=== PATIENT | female | born 1985 | race Caucasian/White ===

== ENCOUNTER 2017-07-23 17:15 | Emergency (ER) | payer OTHER ==
[~2017-07-23] VITALS: Ht 162.6 cm; Wt 99.8 kg
[~2017-07-23 17:15] MED LIST: CETI10TA22 PO; ESOM20CA PO; PREN1TAB58 PO
[2017-07-23] MEDS ORDERED: IV NORMAL SALINE 1,000ML 1,000 ML IV SCH (17:44)
[2017-07-23 18:11] LABS: BASO % 0 % (0-3); EOS # 0.1 x10^3/uL (0.0-0.7); EOS % 1 % (0-3); HEMATOCRIT 39.5 % (36.0-47.0); HEMOGLOBIN 13.5 g/dL (12.0-15.5); LYMPH # 2.2 x10^3/uL (1.0-4.8); LYMPH % 27 % (24-48); MEAN CORPUSCULAR HEMOGLOBIN 31 pg (25-35); MEAN CORPUSCULAR HGB CONC 34 g/dL (31-37); MEAN CORPUSCULAR VOLUME 92 fL (79-100); MONO # 0.3 x10^3/uL (0.0-1.1); MONO % 4 % (0-9); NEUT # 5.6 x10^3uL (1.8-7.7); NEUT % 67 % (31-73); PLATELET COUNT 172 x10^3/uL (140-400); RED BLOOD COUNT 4.31 x10^6/uL (3.50-5.40); RED CELL DISTRIBUTION WIDTH 13.4 % (11.5-14.5); WHITE BLOOD COUNT 8.3 x10^3/uL (4.0-11.0)
[2017-07-23 18:32] LABS: ALBUMIN 3.4 g/dL (3.4-5.0); CALCIUM 8.7 mg/dL (8.5-10.1); CREATININE 0.6 mg/dL (0.6-1.0); GFR 114.4; POTASSIUM 3.5 mmol/L (3.5-5.1); TOTAL BILIRUBIN 0.1 mg/dL (0.2-1.0); TOTAL PROTEIN 6.8 g/dL (6.4-8.2)
--- NOTE | 2017-07-23 18:45 | PHYS DOC ---
Past History Past Medical History: GERD, Hypertension, Ovarian Cyst, Other Past Surgical History: Cholecystectomy, Other Alcohol Use: None Drug Use: None Adult General Chief Complaint Chief Complaint: med withdrawal or side effect HPI HPI Patient is a 32-year-old female who presented ambulatory to the ED with multiple complaints. Patient states that she was advised to come in by her case finisher. Patient had been on Effexor worse since March, it wasn't working, so this past Tuesday her doctor changed her to Wellbutrin and trazodone, stopped the Effexor. She states she began having "withdrawal symptoms" the next day, including headache, sweaty, nausea, vomiting. This has persisted and gotten worse. She now feels dizzy, "confused" and has body aches. She called yesterday to report the symptoms and someone in the office told her to "get off of the Wellbutrin and trazodone" so she has not taken those and then either. Patient has not had withdrawal symptoms like this before. She had been on Effexor in the past, was off it for a while, and then in March started at a low dose and had been increasing her dose for a while and then had been on she believes 150 mg a day for several weeks prior to stopping it on Tuesday. Patient states "I was so dizzy, I probably shouldn't have driven myself, I had to talk to my friend on the phone the whole way here because I was so dizzy". Review of Systems Review of Systems Constitutional: She has felt sweaty Eyes: Denies change in visual acuity, redness, or eye pain [] HENT: Denies nasal congestion or sore throat [] Respiratory: Denies cough or shortness of breath [] Cardiovascular: Denies chest pain GI: She has had some nausea and vomiting : Denies dysuria or hematuria [] Musculoskeletal: She has had diffuse aches and pains Integument: Denies rash or skin lesions [] Neurologic: Positive headache Current Medications Current Medications Current Medications Medications (Trade) Dose Ordered Sig/Jason Start Time Stop Time Status Last Admin Dose Admin Sodium Chloride 1,000 ml @ 1,000 mls/hr Q1H 07/23/17 17:44 07/23/17 18:43 07/23/17 18:06 1,000 MLS/HR Allergies Allergies Allergies Coded Allergies Type Severity Reaction Last Updated Verified Penicillins Allergy Intermediate RASH 09/02/14 Yes Physical Exam Physical Exam Constitutional: Well developed, well nourished, no acute distress, non-toxic appearance. Alert, warm and dry, mentating normally. HENT: Normocephalic, atraumatic, bilateral external ears normal, nose normal. [ ] Eyes: conjunctiva normal, no discharge. [] Neck: Normal range of motion, no stridor. [] Cardiovascular:Heart rate regular rhythm, no murmur [] Lungs & Thorax: Bilateral breath sounds clear to auscultation [] Abdomen: Bowel sounds normal, soft, no tenderness, no masses, no pulsatile masses. [] Skin: Warm, dry, no erythema, no rash. [] Extremities: No tenderness, no cyanosis, no clubbing, ROM intact, no edema. [] Neurologic: Alert and oriented X 3, normal motor function, no focal deficits noted. [] Current Patient Data Vital Signs Vital Signs Date Time Temp Pulse Resp B/P (MAP) Pulse Ox O2 Delivery O2 Flow Rate FiO2 07/23/17 17:20 99.1 107 18 100 Room Air Lab Results Laboratory Tests Test 07/23/17 17:51 White Blood Count 8.3 x10^3/uL (4.0-11.0) Red Blood Count 4.31 x10^6/uL (3.50-5.40) Hemoglobin 13.5 g/dL (12.0-15.5) Hematocrit 39.5 % (36.0-47.0) Mean Corpuscular Volume 92 fL (79-100) Mean Corpuscular Hemoglobin 31 pg (25-35) Mean Corpuscular Hemoglobin Concent 34 g/dL (31-37) Red Cell Distribution Width 13.4 % (11.5-14.5) Platelet Count 172 x10^3/uL (140-400) Neutrophils (%) (Auto) 67 % (31-73) Lymphocytes (%) (Auto) 27 % (24-48) Monocytes (%) (Auto) 4 % (0-9) Eosinophils (%) (Auto) 1 % (0-3) Basophils (%) (Auto) 0 % (0-3) Neutrophils # (Auto) 5.6 x10^3uL (1.8-7.7) Lymphocytes # (Auto) 2.2 x10^3/uL (1.0-4.8) Monocytes # (Auto) 0.3 x10^3/uL (0.0-1.1) Eosinophils # (Auto) 0.1 x10^3/uL (0.0-0.7) Basophils # (Auto) 0.0 x10^3/uL (0.0-0.2) Sodium Level 143 mmol/L (136-145) Potassium Level 3.5 mmol/L (3.5-5.1) Chloride Level 106 mmol/L (98-107) Carbon Dioxide Level 28 mmol/L (21-32) Anion Gap 9 (6-14) Blood Urea Nitrogen 17 mg/dL (7-20) Creatinine 0.6 mg/dL (0.6-1.0) Estimated GFR (Cockcroft-Gault) 114.4 BUN/Creatinine Ratio 28 (6-20) H Glucose Level 121 mg/dL (70-99) H Calcium Level 8.7 mg/dL (8.5-10.1) Total Bilirubin 0.1 mg/dL (0.2-1.0) L Aspartate Amino Transferase (AST) 15 U/L (15-37) Alanine Aminotransferase (ALT) 31 U/L (14-59) Alkaline Phosphatase 126 U/L (46-116) H Total Protein 6.8 g/dL (6.4-8.2) Albumin 3.4 g/dL (3.4-5.0) Albumin/Globulin Ratio 1.0 (1.0-1.7) EKG EKG [] Radiology/Procedures Radiology/Procedures [] Course & Med Decision Making Course & Med Decision Making Pertinent Labs and Imaging studies reviewed. (See chart for details) 32-year-old female presents ambulatory with multiple complaints, concerned that she might be having withdrawal symptoms from Effexor, "something to do with my serotonin". She was advised to come in by her case finisher. Someone in the office also advised her to stop taking Wellbutrin and trazodone. I advised the patient that I am not a specialist who prescribes Effexor, Wellbutrin, or trazodone, and I am not able to make a recommendation on whether she should be taking any of those at this time. I ask her to follow her prescriber's recommendations on that. I advised her that we can check some labs and give her a liter of fluids which might make her feel better since a lot of her complaints of dizziness. She is agreeable to that plan. I am checking the patient out to Dr. Valadez at change of shift. Labs are pending and the patient is getting a liter of fluids. [] Dragon Disclaimer Dragon Disclaimer This electronic medical record was generated, in whole or in part, using a voice recognition dictation system. Departure Departure: Impression: Primary Impression: Medication side effects Additional Impression: Depression Disposition: HOME, SELF-CARE Condition: GOOD Referrals: MORGAN WILLIAMSON (PCP) Additional Instructions: Your workup in the emergency department today was unremarkable. It is possible that the symptoms she been experiencing are result of your recent medication adjustments. No further workup or treatment is indicated at this time. Follow- up with your doctor Tuesday morning to discuss and make decisions regarding your collaborative medical management going forward. Return immediately for new severe worsening symptoms Problem Qualifiers LISANDRA FOURNIER MD Jul 23, 2017 18:45 LONA VALADEZ MD Jul 23, 2017 21:45
[2017-07-23 21:40] VITALS: BP 130/82
== END 2017-07-23 21:54 | disposition home or self-care (01) ==
LOC: ER 17:15
DX: R51 Headache (principal); R11.2 Nausea with vomiting, unspecified; T50.995A Adverse effect of other drugs, medicaments and biological substances, initial encounter; F32.9 Major depressive disorder, single episode, unspecified; K21.9 Gastro-esophageal reflux disease without esophagitis; I10 Essential (primary) hypertension; Z88.0 Allergy status to penicillin; Y92.89 Other specified places as the place of occurrence of the external cause
CPT/HCPCS: 36415; 80053; 85025; 96360; 99284-25; J7030

== ENCOUNTER 2018-10-13 17:11 | Emergency (ER) | payer OTHER ==
[~2018-10-13] VITALS: Ht 162.6 cm; Wt 106.6 kg
--- NOTE | 2018-10-13 17:57 | PHYS DOC ---
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 She states that her foot at stuck on the carpeting and she went down face first. She states the majority of her pain is in her left knee. She states the pain is worsened with weightbearing and much worse if she tries to palpate it. She also indicates that she has moderate pain in her right ribs stating that she has some pain with deep breathing. She states the pain in her elbow is due to an abrasion that she sustained when she fell. She indicates that she has full range of motion about the elbow. Injury occurred a couple of hours ago.[] (WALE HARRINGTON Jr., DO) Review of Systems Review of Systems Constitutional: Denies fever or chills [] Respiratory: Denies cough or shortness of breath [] Cardiovascular: No additional information not addressed in HPI [] Musculoskeletal: Positive left knee and right elbow pain [] Integument: Positive abrasion right elbow[] (WALE HARRINGTON Jr., DO) Current Medications Current Medications Current Medications Medications (Trade) Dose Ordered Sig/Jason Start Time Stop Time Status Last Admin Dose Admin Ketorolac Tromethamine (Toradol Im) 60 mg 1X ONCE 10/13/18 18:00 10/13/18 18:01 (WALE HARRINGTON Jr., DO) Allergies Allergies Allergies Coded Allergies Type Severity Reaction Last Updated Verified Penicillins Allergy Intermediate RASH 09/02/14 Yes (WALE HARRINGTON Jr., DO) Physical Exam Physical Exam Constitutional: Well developed, well nourished, no acute distress, non-toxic appearance. [] Cardiovascular:Heart rate regular rhythm, no murmur [] Lungs & Thorax: Bilateral breath sounds clear to auscultation [] Skin: Right elbow demonstrates abrasion around the dorsum, measuring approximately 4 cm in diameter. [] Extremities: Examination of left knee demonstrates mild soft tissue swelling and some ecchymosis around the medial aspect of the knee extending up to the patella. Patient unable to tolerate range of motion and ligamentous testing due to reported pain. [] Neurologic: Alert and oriented X 3, no focal deficits noted. [] (WALE HARRINGTON Jr., DO) Current Patient Data Vital Signs Vital Signs Date Time Temp Pulse Resp B/P (MAP) Pulse Ox O2 Delivery O2 Flow Rate FiO2 10/13/18 17:21 98.4 98 18 99 Room Air (WALE HARRINGTON Jr., DO) EKG EKG [] (WALE HARRINGTON Jr., DO) Radiology/Procedures Radiology/Procedures [] (WALE HARRINGTON Jr., DO) Radiology/Procedures My interpretation of Chest and Knee films show no obvious displaced fractures or pneumothorax. (GUILLERMO LOYD MD) Course & Med Decision Making Course & Med Decision Making Pertinent Labs and Imaging studies reviewed. (See chart for details) Patient moved to room upon arrival was evaluated by your medical staff after which x-rays were ordered of the left knee and right ribs. Patient also given a shot of IM Toradol. At this time, x-ray images are pending and patient is being signed out to oncoming ER physician, Dr. Loyd, at 6:00 PM. (WALE HARRINGTON Jr., DO) Course & Med Decision Making Impression: 1. Abrasions 2. Contusions 3. Sprain/ Strain Knee Ice packs as needed. Elevation. Rest. Polysporin to abrasions. Tylenol, Ibuprofen, Vicoprofen for pain. Follow up with primary. Return if any concerns. Yeison wrap to Knee. Distal neurovascular intact post application of Yeison. (GUILLERMO LOYD MD) Dragon Disclaimer Dragon Disclaimer This electronic medical record was generated, in whole or in part, using a voice recognition dictation system. (WALE HARRINGTON Jr., DO) Departure Departure: Referrals: MORGAN WILLIAMSON (PCP) Scripts Bacitracin/Polymyxin B Sulfate (POLYSPORIN OINTMENT) 28.3 Gm Oint...g. 28.3 GM TP QID for abrasions, #120 MISC Prov: GUILLERMO LOYD MD 10/13/18 Acetaminophen (ACETAMINOPHEN) 500 Mg Tablet 1000 MG PO QIDPRN PRN for PAIN, #120 TAB Prov: GUILLERMO LOYD MD 10/13/18 Ibuprofen (IBUPROFEN) 400 Mg Tablet 600 MG PO QIDPRN PRN for PAIN, #120 TAB Prov: GUILLERMO LOYD MD 10/13/18 Hydrocodone/Ibuprofen (HYDROCODONE-IBUPROFEN 7.5-200 ) 1 Each Tablet 1 TAB PO PRN Q6HRS PRN for PAIN, #30 % 0 Refills Prov: GUILLERMO LOYD MD 10/13/18 Discharge Summary Visit Information Final Diagnosis Problems Medical Problems: (1) Abrasion forearm Status: Acute (2) Multiple contusions Status: Acute (3) Sprain and strain Status: Acute (GUILLERMO LOYD MD) Brief Hospital Course Allergies Allergies Coded Allergies Type Severity Reaction Last Updated Verified Penicillins Allergy Intermediate RASH 09/02/14 Yes Vital Signs Vital Signs Date Time Temp Pulse Resp B/P (MAP) Pulse Ox O2 Delivery O2 Flow Rate FiO2 10/13/18 18:49 89 18 165/87 (113) 99 Room Air 10/13/18 17:21 98.4 Brief Hospital Course Ms. Petersen is a 33 old female who presented with contusions, abrasion, sprain /strain that occur during team building exercise with work. (GUILLERMO LOYD MD) Discharge Information Condition at Discharge: Improved, Stable Disposition/Orders: D/C to Home Dischare Medications Current Medications Ketorolac Tromethamine (Toradol Im) 60 mg 1X ONCE IM Last administered on 10/13/18at 18:00; Start 10/13/18 at 18:00; Stop 10/13/18 at 18:01; Status DC Mupirocin (Bactroban) 1 hanna 1X ONCE TP ; Start 10/13/18 at 18:30; Stop 10/13/18 at 18:31; Status DC Active Scripts Active Polysporin Ointment (Bacitracin/Polymyxin B Sulfate) 28.3 Gm Oint...g. 28.3 Gm TP QID Acetaminophen 500 Mg Tablet 1,000 Mg PO QIDPRN PRN Ibuprofen 400 Mg Tablet 600 Mg PO QIDPRN PRN Hydrocodone-Ibuprofen 7.5-200 (Hydrocodone/Ibuprofen) 1 Each Tablet 1 Tab PO PRN Q6HRS PRN Reported Zyrtec (Cetirizine Hcl) 10 Mg Tablet 1 Tab PO HS Vitamins ( Vits W-Ca,Fe,Fa(<1MG)) 1 Each Tablet 1 Tab PO DAILY Nexium Capsule (Esomeprazole Magnesium) 20 Mg Capsule.dr 1 Cap PO DAILY (GUILLERMO LOYD MD) Dragon Disclaimer This chart was dictated in whole or in part using Voice Recognition software in a busy, high-work load, and often noisy Emergency Department environment. It may contain unintended and wholly unrecognized errors or omissions. (GUILLERMO LOYD MD) WALE HARRINGTON Jr. DO Oct 13, 2018 17:57 GUILLERMO LOYD MD Oct 13, 2018 19:02
[2018-10-13] MEDS ORDERED: KETOROLAC 60 MG/2 ML VIAL. IM ONE (18:00)
[2018-10-13] MEDS ORDERED: ACET500T68 PO (18:26)
[2018-10-13] MEDS ORDERED: BACI28.34 TP (18:26)
[2018-10-13] MEDS ORDERED: IBUP400T18 PO (18:26)
[2018-10-13] MEDS ORDERED: HYDR-1179 PO (18:26)
[2018-10-13] MEDS ORDERED: MUPIROCIN 2% TOPICAL OINTMENT 22GM TUBE. TP ONE (18:30)
[2018-10-13 18:49] VITALS: BP 165/87
--- NOTE | 2018-10-13 23:24 | RAD ---
Left knee 3 views. HISTORY: Fell today, bruising, swelling 3 views were taken the left knee. There is not evidence of an acute fracture or joint effusion or acute osseous abnormality. IMPRESSION: 1. No acute fracture noted in the left knee. Electronically signed by: Rashawn Melendrez MD (10/13/2018 11:21 PM) [facility]
--- NOTE | 2018-10-14 07:35 | RAD ---
Indication: Fall, right rib and chest pain. TECHNIQUE: Multiple views of the right ribs COMPARISON: None FINDINGS: Heart is normal in size. Lungs are clear. No acute fracture seen. No pneumothorax or large pleural effusion. IMPRESSION: No acute pulmonary process. Electronically signed by: Rafa Cam DO (10/14/2018 7:32 AM) [facility]
== END 2018-10-13 18:48 | disposition home or self-care (01) ==
LOC: ER 17:11
DX: S80.02XA Contusion of left knee, initial encounter (principal); S50.311A Abrasion of right elbow, initial encounter; R07.81 Pleurodynia; F41.9 Anxiety disorder, unspecified; F32.9 Major depressive disorder, single episode, unspecified; K21.9 Gastro-esophageal reflux disease without esophagitis; I10 Essential (primary) hypertension; Z88.0 Allergy status to penicillin; W18.39XA Other fall on same level, initial encounter; Y93.02 Activity, running; Y92.89 Other specified places as the place of occurrence of the external cause; Y99.8 Other external cause status
CPT/HCPCS: 71101; 73562; 96372; 99284; J1885

== ENCOUNTER → 2019-04-06 | Outpatient (CLI) | payer OTHER ==
[~2019-04-06] MED LIST changes: +ACET500T68 PO; +BACI28.34 TP; -CETI10TA22 PO; +CETI10TA24 PO; +HYDR-1179 PO; +IBUP400T18 PO
--- NOTE | 2019-04-06 11:17 | RAD ---
ESOPHOGRAM/BARIUM SWALLOW Reason for study: Dysphasia. Comparison studies: None. Technique: Esophagram was performed utilizing double contrast upright examination, single contrast prone examination, and cine evaluation of cervical esophageal swallow function. Findings: Preliminary chest x-ray: No consolidation or pleural effusion. Normal heart size. Normal appearance of the esophageal mucosa. No esophageal obstruction or narrowing. Normal-appearing tapering of the distal esophagus. Normal relaxation of the lower esophageal sphincter. No evidence of diverticulum. Normal appearance of the pharynx. No evidence of aspiration or penetration during the examination. Normal deglutition. Multiple single swallows were obtained in the prone positioning. Primary peristalsis to the level of the thoracic inlet with loss of primary peristalsis large amount of proximal escape and mild undulating tertiary contractions. During this portion of the examination the patient's symptoms were produced. The barium tablet retained slightly at the gastroesophageal junction and passed with further large volume swallows. While there tablet was retained the patient's symptoms were also be produced. Fluoroscopic time: 3.2 minutes. Fluoroscopic images: 16 IMPRESSION: 1. Moderate esophageal dysmotility producing the patient's ongoing symptoms. 2. Mild retention of the barium tablet at the gastroesophageal junction subsequently passed with large volume swallows. The patient ongoing symptoms were also be produced. Electronically signed by: Eliot Barraza DO (04/06/2019 11:14 AM) [facility]
== END | disposition home or self-care (01) ==
LOC: RAD 08:09
PROVIDERS: ATTEND Internal Medicine Gastroenterology
DX: K22.4 Dyskinesia of esophagus (principal)
CPT/HCPCS: 74220

== ENCOUNTER 2019-05-03 20:37 | Emergency (ER) | payer OTHER ==
[~2019-05-03] VITALS: Ht 162.6 cm; Wt 102.5 kg
--- NOTE | 2019-05-03 21:04 | PHYS DOC ---
Past History Past Medical History: Anxiety, Depression, GERD, Hypertension, Ovarian Cyst, Other Past Surgical History: Cholecystectomy, Other Alcohol Use: Occasionally Drug Use: None Adult General Chief Complaint Chief Complaint: ".. I ve been bleeding the last 28 days.. ".." It like peroid that never stops...".." Cramping..." HPI HPI Patient is a 33 year old female who presents with above hx and complaints of vaginal bleeding x 28 days. Patient states bleeding is similar to a period. Patient denies any history of STDs. Has had 30 life times sexual partners. No recent travel. No history of trauma. No history of used dill dose. Patient states pelvic exam in the past and always been normal. History of coagulopathy. No history of excessive ecchymosis or petechiae. No recent overseas travel. History of ill contacts. Follows at [facility]. She does relate that her mother went to the change of life in her 30s. Review of Systems Review of Systems Constitutional: Denies fever or chills [] Eyes: Denies change in visual acuity, redness, or eye pain [] HENT: Denies nasal congestion or sore throat [] Respiratory: Denies cough or shortness of breath [] Cardiovascular: No additional information not addressed in HPI [] GI: Complaints of crampy abdominal pain. Denies, nausea, vomiting, bloody stools or diarrhea [] : Denies dysuria or hematuria []complaints of a period for the last 28 days Musculoskeletal: Denies back pain or joint pain [] Integument: Denies rash or skin lesions [] Neurologic: Denies headache, focal weakness or sensory changes [] Endocrine: Denies polyuria or polydipsia [] All other systems were reviewed and found to be within normal limits, except as documented in this note. Family History Family History Noncontributory Current Medications Current Medications See nursing for home meds Allergies Allergies Allergies Coded Allergies Type Severity Reaction Last Updated Verified Penicillins Allergy Intermediate RASH 09/02/14 Yes Physical Exam Physical Exam Constitutional: Moderate acute distress, non-toxic appearance. [] HENT: Normocephalic, atraumatic, bilateral external ears normal, oropharynx moist, no oral exudates, nose normal. [] Eyes: PERRLA, EOMI, conjunctiva normal, no discharge. [] Neck: Normal range of motion, no tenderness, supple, no stridor. [] Cardiovascular:Heart rate regular rhythm, no murmur [] Lungs & Thorax: Bilateral breath sounds clear to auscultation [] Abdomen: Bowel sounds normal, soft, right lower pelvic tenderness, no masses, no pulsatile masses. [] Obese. Vaginal exam shows some spotting from os. Right adnexal tenderness. Rectal exam nontender. Hard stool in vault. Rebound to right lower quadrant. Skin: Warm, dry, no erythema, no rash. []No petechiae or excessive bruising Back: No tenderness, no CVA tenderness. [] Extremities: No tenderness, no cyanosis, no clubbing, ROM intact, no edema. [] No psoas sign. Neurologic: Alert and oriented X 3, normal motor function, normal sensory function, no focal deficits noted. [] Psychologic: Affect anxious, judgement normal, mood normal. [] EKG EKG [] Radiology/Procedures Radiology/Procedures [[place] [address] IMAGING REPORT Signed PATIENT: HARRISON RUBIO ACCOUNT: [id number] : 1985 LOCATION: ER AGE: 33 SEX: F EXAM STATUS: REG ER ORD. PHYSICIAN: GUILLERMO ALMEIDA MD REASON: Vag bleeding for 3 weeks, right sided abd pain with cramping PROCEDURE: ACUTE ABDOMEN SERIES Three-view acute abdominal series. HISTORY: Vaginal bleeding, right-sided abdominal pain cramping 3 views were taken for an acute abdominal series. Lungs are clear. Heart is normal in size. There is no effusion. There is no free air on the upright view the abdomen or abnormal air-fluid levels. Bowel pattern is normal without bowel obstruction. There are changes from surgery at the stomach. There are bilateral intrarenal calculi. There is a probable phleboliths in the pelvis. IMPRESSION: 1. Intrarenal calculi. 2. No bowel obstruction or other acute finding in the abdomen. 3. No acute chest disease. Electronically signed by: Rashawn Melendrez MD (05/03/2019 11:21 PM) [facility] DICTATED AND SIGNED BY: RASHAWN MELENDREZ MD DATE: 05/03/19 0463 CC: MORGAN WILLIAMSON; GUILLERMO ALMEIDA MD ~ ][place] [address] IMAGING REPORT Signed PATIENT: HARRISON RUBIO ACCOUNT: [id number] : 1985 LOCATION: ER AGE: 33 SEX: F EXAM STATUS: REG ER ORD. PHYSICIAN: GUILLERMO ALMEIDA MD REASON: pain Rt lower abdomen with cramping, vag bleeding x 3 weeks. PROCEDURE: CT ABD PELV W/ORAL&IV CONTRAST CT abdomen and pelvis with contrast PQRS statement: CT scans at this facility use dose reduction including either automated exposure control, iterative reconstructions, and /or weight based radiation dosing via mA and kV modification when appropriate to reduce radiation dose to as low as reasonably achievable. HISTORY: Right lower quadrant abdominal pain, vaginal bleeding. Contrast: 75 mL Omnipaque 300 intravenous contrast. Abdomen findings: Small nonobstructing renal calculi. No ureteral calculi or hydronephrosis. Lung bases unremarkable. Lower lumbar disc disease and arthritic change with spinal canal and neural foraminal stenoses L4-L5 and L5-S1. Cholecystectomy. Pancreas, adrenals, spleen and liver are unremarkable. Surgical change of the stomach of vertical sleeve. Appendix is negative. No obstruction or inflammatory changes in GI tract. No abdominal fluid or adenopathy. Pelvis findings: Uterus, ovaries, bladder, rectum and bones are unremarkable. No fluid or adenopathy. IMPRESSION: 1. No acute process. Appendix is negative. 2. Nonobstructing renal calculi. Electronically signed by: Nia Aguayo MD (05/04/2019 12:26 AM) [facility] DICTATED AND SIGNED BY: NIA AGUAYO MD DATE: 05/04/19 0026 CC: MORGAN WILLIAMSON; GUILLERMO ALMEIDA MD ~ Course & Med Decision Making Course & Med Decision Making Pertinent Labs and Imaging studies reviewed. (See chart for details) Continue Pad counts. Follow up with primary and software qa manager. May needed endometrial biopsy or vaginal ultrasound. May need to be on a course of control. Follow-up pending cultures. Impression: 1. Dysfunctional Uterine Bleeding 2. Mild elevation in alkaline phosphatase 128 : Dragon Disclaimer Dragon Disclaimer This electronic medical record was generated, in whole or in part, using a voice recognition dictation system. Departure Departure: Disposition: 01 HOME/RESIDENCE PRIOR TO ADM Condition: STABLE Referrals: MORGAN WILLIAMSON (PCP) Avis Disclaimer This chart was dictated in whole or in part using Voice Recognition software in a busy, high-work load, and often noisy Emergency Department environment. It may contain unintended and wholly unrecognized errors or omissions. GUILLERMO ALMEIDA MD May 03, 2019 21:04
[2019-05-03 21:30] VITALS: BP 130/83
[2019-05-03 22:20] LABS: BARBITURATES NEG (NEG); BENZODIAZEPINES NEG (NEG); CANNABINOIDS NEG (NEG); COCAINE NEG (NEG); METHADONE NEG (NEG); OPIATES NEG (NEG); PHENCYCLIDINE NEG (NEG)
[2019-05-03 22:25] LABS: AMPHETAMINE/METHAMPHETAMINE NEG (NEG)
[2019-05-03 22:27] LABS: U PREG PATIENT NEGATIVE (NEG)
[2019-05-03 22:39] LABS: BACTERIA,URINE 0 /HPF (0-FEW); BILIRUBIN,URINE NEG (NEG); CLARITY,URINE CLEAR; COLOR,URINE YELLOW; GLUCOSE,URINE NEG (NEG); NITRITE,URINE NEG (NEG); SQUAMOUS EPITHELIAL CELL,UR OCC /LPF; UROBILINOGEN,URINE 0.2 mg/dL (0.2 mg/dL)
[2019-05-03] MEDS ORDERED: CONTRAST GIVEN MC PRN (23:15)
[2019-05-03] MEDS ORDERED: IOHEXOL 240 MG/ML 50ML VIAL. PO ONE (23:15)
[2019-05-03] MEDS ORDERED: IOHEXOL 300 MG/ML 75 ML VIAL. IV ONE (23:15)
--- NOTE | 2019-05-03 23:23 | RAD ---
Three-view acute abdominal series. HISTORY: Vaginal bleeding, right-sided abdominal pain cramping 3 views were taken for an acute abdominal series. Lungs are clear. Heart is normal in size. There is no effusion. There is no free air on the upright view the abdomen or abnormal air-fluid levels. Bowel pattern is normal without bowel obstruction. There are changes from surgery at the stomach. There are bilateral intrarenal calculi. There is a probable phleboliths in the pelvis. IMPRESSION: 1. Intrarenal calculi. 2. No bowel obstruction or other acute finding in the abdomen. 3. No acute chest disease. Electronically signed by: Rashawn Melendrez MD (05/03/2019 11:21 PM) [facility]
[2019-05-03 23:48] LABS: BASO # 0.1 x10^3/uL (0.0-0.2); BASO % 1 % (0-3); EOS # 0.1 x10^3/uL (0.0-0.7); EOS % 1 % (0-3); HEMATOCRIT 39.5 % (36.0-47.0); HEMOGLOBIN 13.6 g/dL (12.0-15.5); LYMPH # 2.4 x10^3/uL (1.0-4.8); LYMPH % 33 % (24-48); MEAN CORPUSCULAR HEMOGLOBIN 31 pg (25-35); MEAN CORPUSCULAR HGB CONC 34 g/dL (31-37); MEAN CORPUSCULAR VOLUME 89 fL (79-100); MONO # 0.3 x10^3/uL (0.0-1.1); MONO % 4 % (0-9); NEUT # 4.4 x10^3uL (1.8-7.7); NEUT % 61 % (31-73); PLATELET COUNT 189 x10^3/uL (140-400); RED BLOOD COUNT 4.44 x10^6/uL (3.50-5.40); RED CELL DISTRIBUTION WIDTH 14.3 % (11.5-14.5); WHITE BLOOD COUNT 7.2 x10^3/uL (4.0-11.0)
[2019-05-03 23:52] LABS: CALCIUM 9.1 mg/dL (8.5-10.1); CREATININE 0.7 mg/dL (0.6-1.0); GFR 95.2; POTASSIUM 3.9 mmol/L (3.5-5.1)
[2019-05-03 23:58] LABS: DIRECT BILIRUBIN 0.1 mg/dL (0.0-0.2); TOTAL BILIRUBIN 0.4 mg/dL (0.2-1.0); TOTAL PROTEIN 7.6 g/dL (6.4-8.2)
--- NOTE | 2019-05-04 00:29 | RAD ---
CT abdomen and pelvis with contrast PQRS statement: CT scans at this facility use dose reduction including either automated exposure control, iterative reconstructions, and /or weight based radiation dosing via mA and kV modification when appropriate to reduce radiation dose to as low as reasonably achievable. HISTORY: Right lower quadrant abdominal pain, vaginal bleeding. Contrast: 75 mL Omnipaque 300 intravenous contrast. Abdomen findings: Small nonobstructing renal calculi. No ureteral calculi or hydronephrosis. Lung bases unremarkable. Lower lumbar disc disease and arthritic change with spinal canal and neural foraminal stenoses L4-L5 and L5-S1. Cholecystectomy. Pancreas, adrenals, spleen and liver are unremarkable. Surgical change of the stomach of vertical sleeve. Appendix is negative. No obstruction or inflammatory changes in GI tract. No abdominal fluid or adenopathy. Pelvis findings: Uterus, ovaries, bladder, rectum and bones are unremarkable. No fluid or adenopathy. IMPRESSION: 1. No acute process. Appendix is negative. 2. Nonobstructing renal calculi. Electronically signed by: Zachary Aguayo MD (05/04/2019 12:26 AM) [facility]
[2019-05-04] MEDS ORDERED: KETOROLAC 30 MG/ML VIAL. ONE (01:27)
[2019-05-04] MEDS ORDERED: KETOROLAC 30 MG/ML VIAL. IVP ONE (01:30)
[2019-05-07 20:07] LABS: CHLAMYDIA PROBE Negative (Negative)
== END 2019-05-04 01:32 | disposition home or self-care (01) ==
LOC: ER 20:37
DX: N93.8 Other specified abnormal uterine and vaginal bleeding (principal); R79.89 Other specified abnormal findings of blood chemistry; F41.9 Anxiety disorder, unspecified; F32.9 Major depressive disorder, single episode, unspecified; K21.9 Gastro-esophageal reflux disease without esophagitis; I10 Essential (primary) hypertension; Z88.0 Allergy status to penicillin
CPT/HCPCS: 36415; 74022; 74177; 80048; 80076; 80307; 81001; 81025; 85025; 85610; 85730; 87086; 87186; 87491; 87591; 96374; 99285; J1885; Q0111; Q9966; Q9967

== ENCOUNTER 2019-12-13 20:50 | Emergency (ER) | payer OTHER ==
[~2019-12-13] VITALS: Ht 162.6 cm; Wt 96.8 kg
[2019-12-13 20:57] VITALS: BP 132/86
[2019-12-13] MEDS ORDERED: KETOROLAC 15 MG/ML VIAL. IVP ONE (21:00)
[2019-12-13] MEDS ORDERED: HYDROcodone/APAP 5/325MG 1 TAB TABLET PO ONE (21:45)
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
[2019-12-13] MEDS ORDERED: HYDR-3165 PO (21:51)
--- NOTE | 2019-12-13 23:18 | RAD ---
INDICATION: Reason: pain s/p fall / Spl. Instructions: / History: COMPARISON: None. IMPRESSION: Left lower le views obtained. No evidence of acute fracture or dislocation. Right forearm: 2 views obtained. No evidence of acute fracture or dislocation. There is some soft tissue swelling. Electronically signed by: Joss Hoover MD (12/13/2019 11:15 PM) [id number]
== END 2019-12-13 22:10 | disposition home or self-care (01) ==
LOC: ER 20:50
DX: S50.11XA Contusion of right forearm, initial encounter (principal); S80.12XA Contusion of left lower leg, initial encounter; J45.909 Unspecified asthma, uncomplicated; I10 Essential (primary) hypertension; Z88.0 Allergy status to penicillin; V09.9XXA Pedestrian injured in unspecified transport accident, initial encounter; Y93.89 Activity, other specified; Y92.89 Other specified places as the place of occurrence of the external cause; Y99.8 Other external cause status
CPT/HCPCS: 73090; 73590; 96374; 96375; 99284; J1885; J3010

== ENCOUNTER 2020-09-01 09:41 | Emergency (ER) | payer OTHER ==
[~2020-09-01] VITALS: Ht 162.6 cm; Wt 99.6 kg
[~2020-09-01 09:41] MED LIST changes: -CETI10TA24 PO; +CETI10TA74 PO; +HYDR-3165 PO
--- NOTE | 2020-09-01 10:24 | EKG ---
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
[2020-09-01] MEDS ORDERED: ONDANSETRON PF 4 MG/2 ML VIAL. IVP ONE (10:30)
[2020-09-01] MEDS ORDERED: IOHEXOL 350 MG/ML 100 ML VIAL. IV ONE (10:30)
[2020-09-01] MEDS ORDERED: IV NORMAL SALINE 1,000ML 1,000 ML IV ONE ×2 (10:30→11:30)
[2020-09-01] MEDS ORDERED: MECLIZINE 12.5 MG TABLET. PO ONE (10:30)
--- NOTE | 2020-09-01 10:32 | PHYS DOC ---
Past History Past Medical History: Asthma Additional Past Medical Histor: PCOS Past Surgical History: Cholecystectomy, Other Additional Past Surgical Histo: BACK SURGERY, WEIGHT LOSS SLEEVE Smoking: Non-smoker Alcohol Use: None Drug Use: None General Adult EDM: Chief Complaint: DIZZY/LIGHT HEADED HPI: HPI: Patient is a 35-year-old female sent to the emergency department by urgent care. Patient initially went there because she woke up around 2 to 2:30 in the morning with a spinning sensation. Patient says she has an occipital headache. She otherwise been well when she went to bed. No recent illness. Denies any congestion or vision changes. Patient states she has subjective left-sided numbness, denies any weakness or paresthesias. Has a history of migraines are u sually frontal does not history of occipital headaches. Denies any neck pain or stiffness. No fevers, vomiting, diarrhea. Patient states he otherwise been well. She says the symptoms are worse with movement better with laying down or sitting still. Review of Systems: Review of Systems: All other systems within normal limits except for as noted in the HPI Current Medications: Current Meds: Current Medications Medications (Trade) Dose Ordered Sig/Jason Start Time Stop Time Status Last Admin Dose Admin Iohexol (Omnipaque 350 Mg/ml) 100 ml 1X ONCE 09/01/20 10:30 09/01/20 10:31 UNV Meclizine HCl (Antivert) 25 mg 1X ONCE 09/01/20 10:30 09/01/20 10:31 UNV Ondansetron HCl (Zofran) 4 mg 1X ONCE 09/01/20 10:30 09/01/20 10:31 UNV Sodium Chloride 1,000 ml @ 1,000 mls/hr 1X ONCE 09/01/20 10:30 09/01/20 11:29 UNV Allergies: Allergies: Allergies Coded Allergies Type Severity Reaction Last Updated Verified Penicillins Allergy Intermediate RASH 09/01/20 Yes Physical Exam: PE: Constitutional: Well developed, well nourished, no acute distress, non-toxic appearance. [] HENT: Normocephalic, atraumatic, bilateral external ears normal, bilateral TMs normal, nose normal. [] Eyes: PERRLA, conjunctiva normal, no discharge. Nystagmus with looking to the left, no right-sided or upward nystagmus [] Neck: No rigidity, supple, no stridor. [] Cardiovascular: Regular rate and rhythm, brisk cap refill [] Lungs & Thorax: Non labored symmetric respirations, no tachypnea or respiratory distress [] Abdomen: Soft, nondistended. Skin: Warm, dry, no erythema, no rash. [] Back: Unremarkable Extremities: No deformities, range of motion grossly intact, no lower extremity edema [] Neurologic: Alert and oriented X 3, no focal deficits noted, decreased sensation on left, right and left upper extremity strength symmetric. No cranial nerve deficits.. [] Psychologic: Affect normal, judgement normal, mood normal. [] Current Patient Data: Labs: Laboratory Tests Test 09/01/20 10:19 POC Urine HCG, Qualitative hcg negative (Negative) Vital Signs: Vital Signs Date Time Temp Pulse Resp B/P (MAP) Pulse Ox O2 Delivery O2 Flow Rate FiO2 09/01/20 09:50 97.7 84 18 147/100 (116) 99 Room Air EKG: EKG: Sinus rhythm, heart rate 68 bpm, normal axis, no ST elevation or depression, no ectopy. Normal intervals. [] Radiology/Procedures: Radiology/Procedures: CT arteriogram of the neck with contrast, CT arteriogram of the brain with contrast. HISTORY: Vertigo, left-sided numbness CT arteriogram the carotid arteries was done using 100 mL Isovue contrast. Sagittal and coronal MIP images were reconstructed. Lung apices are clear. The origins the great vessels at the aortic arch are patent. There are normal vertebral arteries. Both vertebral arteries supply flow to the basilar artery. There is no subclavian stenosis noted although the right subclavian is partially obscured by contrast in the vein. Common carotid arteries are unremarkable. There is no significant plaque or stenosis at the carotid bifurcations. There is straightening of the normal cervical lordosis probably positional. There is mild spurring at C5-6. There is no mass or adenopathy in the neck. IMPRESSION: 1. No carotid stenosis noted. 2. Normal vertebral arteries. 3. Mild degenerative change in the cervical spine mainly at C5-6. CT arteriogram of the brain CT arteriogram of the brain was done following CT arteriogram the carotid arteries. Sagittal and coronal MIP images were reconstructed, three-dimensional images were reconstructed. Basilar artery is normal. Posterior cerebral arteries are patent. There is mild narrowing of the right internal carotid artery at the siphon without severe stenosis. Right anterior cerebral artery is somewhat small but patent. Left anterior cerebral is normal. There is a normal anterior communicating artery. Middle cerebral arteries are patent bilaterally. A major vessel occlusion is not identified. Cranial veins are patent. Definite intracranial aneurysm is not identified. Precontrast images were not obtained to evaluate for subtle hemorrhage. No definite hemorrhage noted. No pathologic enhancement noted. There is no mass effect or shift of the midline. IMPRESSION: 1. No intracranial aneurysm noted. 2. No pathologic enhancement or mass identified. 3. No major vessel occlusion identified. 4. Precontrast images were not identified so subtle hemorrhage could be missed, MRI could be of benefit. [] Heart Score: C/O Chest Pain: No Risk Factors: Risk Factors: DM, Current or recent (<one month) smoker, HTN, HLP, family history of CAD, obesity. Risk Scores: Score 0 - 3: 2.5% MACE over next 6 weeks - Discharge Home Score 4 - 6: 20.3% MACE over next 6 weeks - Admit for Clinical Observation Score 7 - 10: 72.7% MACE over next 6 weeks - Early Invasive Strategies Course & Med Decision Making: Course & Med Decision Making Pertinent Labs and Imaging studies reviewed. (See chart for details) Little improvement with the meclizine. Given headache cocktail and symptoms significantly improved, patient feeling much better and ready for discharge. Discussed the patient symptoms likely due to complex migraine. Asked her to follow-up with her primary care I discussed return precautions. [] Avis Disclaimer: Avis Disclaimer: This electronic medical record was generated, in whole or in part, using a voice recognition dictation system. Departure Departure: Impression: Primary Impression: Vertigo Additional Impression: Migraine headache Disposition: HOME / SELF CARE / HOMELESS Condition: STABLE Referrals: MORGAN WILLIAMSON (PCP) Patient Instructions: Vertigo Scripts Meclizine Hcl (MECLIZINE HCL) 25 Mg Tablet 1 TAB PO TID PRN for DIZZINESS for 5 Days, #15 TAB Prov: DEION REDMOND MD 09/01/20 DEION REDMOND MD September 01, 2020 10:32
[2020-09-01 10:36] LABS: BASO % 1 % (0-3); EOS # 0.1 x10^3/uL (0.0-0.7); EOS % 1 % (0-3); HEMATOCRIT 39.3 % (36.0-47.0); HEMOGLOBIN 13.4 g/dL (12.0-15.5); LYMPH # 2.1 x10^3/uL (1.0-4.8); LYMPH % 30 % (24-48); MEAN CORPUSCULAR HEMOGLOBIN 31 pg (25-35); MEAN CORPUSCULAR HGB CONC 34 g/dL (31-37); MEAN CORPUSCULAR VOLUME 90 fL (79-100); MONO # 0.3 x10^3/uL (0.0-1.1); MONO % 4 % (0-9); NEUT # 4.6 x10^3uL (1.8-7.7); NEUT % 65 % (31-73); PLATELET COUNT 178 x10^3/uL (140-400); RED BLOOD COUNT 4.36 x10^6/uL (3.50-5.40); RED CELL DISTRIBUTION WIDTH 13.4 % (11.5-14.5); WHITE BLOOD COUNT 7.1 x10^3/uL (4.0-11.0)
[2020-09-01 10:38] LABS: BILIRUBIN,URINE NEG (NEG); CLARITY,URINE CLEAR; COLOR,URINE YELLOW; GLUCOSE,URINE NEG (NEG)
[2020-09-01 10:39] LABS: NITRITE,URINE NEG (NEG); UROBILINOGEN,URINE 0.2 mg/dL (0.2 mg/dL)
[2020-09-01 10:44] LABS: CALCIUM 8.7 mg/dL (8.5-10.1); CREATININE 0.7 mg/dL (0.6-1.0); GFR 94.2; POTASSIUM 3.9 mmol/L (3.5-5.1)
[2020-09-01 10:45] LABS: BACTERIA,URINE FEW /HPF (0-FEW); SQUAMOUS EPITHELIAL CELL,UR MANY /LPF
[2020-09-01 10:49] LABS: ALBUMIN 3.7 g/dL (3.4-5.0); ALBUMIN/GLOBULIN RATIO 1.2 (1.0-1.7); MAGNESIUM 1.8 mg/dL (1.8-2.4); PHOSPHORUS 2.5 mg/dL (2.6-4.7); TOTAL BILIRUBIN 0.3 mg/dL (0.2-1.0); TOTAL PROTEIN 6.9 g/dL (6.4-8.2)
[2020-09-01] MEDS ORDERED: PROCHLORPERAZINE 10 MG/2 ML VIAL. IV ONE (11:30)
[2020-09-01] MEDS ORDERED: diphenhydrAMINE 50 MG/ML VIAL IVP ONE (11:30)
[2020-09-01] MEDS ORDERED: KETOROLAC 15 MG/ML VIAL. IVP ONE (11:30)
--- NOTE | 2020-09-01 11:41 | RAD ---
CT arteriogram of the neck with contrast, CT arteriogram of the brain with contrast. HISTORY: Vertigo, left-sided numbness CT arteriogram the carotid arteries was done using 100 mL Isovue contrast. Sagittal and coronal MIP i mages were reconstructed. Lung apices are clear. The origins the great vessels at the aortic arch are patent. There are normal vertebral arteries. Both vertebral arteries supply flow to the basilar ania ry. There is no subclavian stenosis noted although the right subclavian is partially obscured by cont rast in the vein. Common carotid arteries are unremarkable. There is no significant plaque or stenosi s at the carotid bifurcations. There is straightening of the normal cervical lordosis probably positi onal. There is mild spurring at C5-6. There is no mass or adenopathy in the neck. IMPRESSION: 1. No carotid stenosis noted. 2. Normal vertebral arteries. 3. Mild degenerative change in the cervical spine mainly at C5-6. CT arteriogram of the brain CT arteriogram of the brain was done following CT arteriogram the carotid arteries. Sagittal and loli nal MIP images were reconstructed, three-dimensional images were reconstructed. Basilar artery is nor mal. Posterior cerebral arteries are patent. There is mild narrowing of the right internal carotid ar liz at the siphon without severe stenosis. Right anterior cerebral artery is somewhat small but plasencia nt. Left anterior cerebral is normal. There is a normal anterior communicating artery. Middle cerebra l arteries are patent bilaterally. A major vessel occlusion is not identified. Cranial veins are plasencia nt. Definite intracranial aneurysm is not identified. Precontrast images were not obtained to evaluat e for subtle hemorrhage. No definite hemorrhage noted. No pathologic enhancement noted. There is no m ass effect or shift of the midline. IMPRESSION: 1. No intracranial aneurysm noted. 2. No pathologic enhancement or mass identified. 3. No major vessel occlusion identified. 4. Precontrast images were not identified so subtle hemorrhage could be missed, MRI could be of benef it. PQRS Compliance Statement: One or more of the following individualized dose reduction techniques were utilized for this examinat ion: 1. Automated exposure control 2. Adjustment of the mA and/or kV according to patient size 3. Use of iterative reconstruction technique Electronically signed by: Rashawn Melendrez MD (09/01/2020 11:38 AM) [id number]
[2020-09-01] MEDS ORDERED: MECL-75 PO (12:32)
[2020-09-01 12:37] VITALS: BP 141/80
== END 2020-09-01 12:37 | disposition home or self-care (01) ==
LOC: ER 09:41
DX: G43.909 Migraine, unspecified, not intractable, without status migrainosus (principal); R42 Dizziness and giddiness; Z88.0 Allergy status to penicillin; Z90.49 Acquired absence of other specified parts of digestive tract
CPT/HCPCS: 36415; 70496; 70498; 80053; 81001; 81025; 83735; 84100; 84484; 85025; 93005; 96361; 96374; 96375; 99285; J0780; J1200; J1885; J2405; J7030; Q9967

== ENCOUNTER 2021-05-11 16:10 | Emergency (ER) | payer OTHER ==
[~2021-05-11] VITALS: Ht 162.6 cm; Wt 108.0 kg
[~2021-05-11 16:10] MED LIST changes: +MECL-75 PO
[2021-05-11 16:20] VITALS: BP 121/92
--- NOTE | 2021-05-11 16:48 | RAD ---
Site ID: [id number] EXAMINATION: XR CHEST 2V. HISTORY: 35 years Female Reason: COUGH / Spl. Instructions: / History: . . COMPARISON: None. Findings: The lungs are clear. The heart size is normal. There is no effusion or pneumothorax. The mediastinum and jose appear unremarkable. Impression: Unremarkable study. Electronically signed by: Xavier Elder MD (05/11/2021 4:46 PM) [id number]
--- NOTE | 2021-05-11 17:36 | PHYS DOC ---
Past History Past Medical History: Asthma Additional Past Medical Histor: PCOS, GESTATIONAL DIABETES Past Surgical History: Cholecystectomy, Other Additional Past Surgical Histo: BACK SURGERY, WEIGHT LOSS SLEEVE Smoking: Non-smoker Alcohol Use: None Drug Use: None Adult General Chief Complaint Chief Complaint: RIB PAIN [facility] HPI Patient is a 35-year-old female presenting for right-sided chest wall pain. Reports she was diagnosed with COVID despite being vaccinated approximately 4 weeks ago and has persistent cough ever since. States she has seen her primary care provider and OB provider for this and has had several prescriptions such as Tessalon Perles without significant relief in pain. Reports she has been coughing so much she felt a pop along the right side of the chest wall and concerned she might of fractured rib. Discloses she is approximately 12 weeks and has had good care up to this point without any issues. Review of Systems Review of Systems Fourteen body systems of review of systems have been reviewed. See HPI for pertinent positives and negative responses, other bullard all other systems are negative, non-pertinent or non-contributory Allergies Allergies Allergies Coded Allergies Type Severity Reaction Last Updated Verified Penicillins Allergy Intermediate RASH 09/01/20 Yes Physical Exam Physical Exam Constitutional: Well developed, well nourished, no acute distress, non-toxic appearance. HENT: Normocephalic, atraumatic, bilateral external ears normal, oropharynx moist, no oral exudates, nose normal. Eyes: PERRLA, EOMI, conjunctiva normal, no discharge. Neck: Normal range of motion, no tenderness, supple, no stridor. Cardiovascular: Heart rate regular, sinus rhythm, no murmurs rubs or gallops, Right side chest wall tender to palpation along intercostal muscles without any obvious palpable and/or visual abnormalities Lungs & Thorax: Bilateral breath sounds clear to auscultation Abdomen: Bowel sounds normal, soft and protuberant. No tenderness, no masses, no pulsatile masses. Nonsurgical abdomen, no peritoneal signs Skin: Warm, dry, no erythema, no rash. Back: No tenderness, no CVA tenderness. Extremities: No tenderness, no cyanosis, no clubbing, ROM intact, no edema. Neurologic: Alert and oriented X 3, grossly normal motor & sensory function, no focal deficits noted. Psychologic: Affect normal, judgement normal, mood normal. Current Patient Data Vital Signs Vital Signs Date Time Temp Pulse Resp B/P (MAP) Pulse Ox O2 Delivery O2 Flow Rate FiO2 05/11/21 16:20 98.6 102 18 121/92 (102) 100 Room Air EKG EKG [] Radiology/Procedures Radiology/Procedures Site ID: [id number] EXAMINATION: XR CHEST 2V. HISTORY: 35 years Female Reason: COUGH / Spl. Instructions: / History: . . COMPARISON: None. Findings: The lungs are clear. The heart size is normal. There is no effusion or pneumothorax. The mediastinum and jose appear unremarkable. Impression: Unremarkable study. Electronically signed by: Xavier Elder MD (05/11/2021 4:46 PM) [id number] Heart Score C/O Chest Pain: No Risk Factors: Risk Factors: DM, Current or recent (<one month) smoker, HTN, HLP, family history of CAD, obesity. Risk Scores: Risk Factors: DM, Current or recent (<one month) smoker, HTN, HLP, family history of CAD, obesity. Course & Med Decision Making Course & Med Decision Making ABCs unremarkable HPI and physical exam nonconcerning for any emergent or surgical issues Patient's right side chest wall with unremarkable radiograph for any bony abnormality. Likely strain of intercostal muscle from coughing status post COVID. Supportive care advised such as antihistamine use and honey Patient's fetus evaluated with bedside ultrasound with x1 single intrauterine growth with positive cardiac activity that was showed to mother while in ER setting with heart rate 148 bpm and no other [employer] complaints Joint decision made to discharge with close PCP and [employer] follow-up for continued care Dragon Disclaimer Dragon Disclaimer This electronic medical record was generated, in whole or in part, using a voice recognition dictation system. Ultrasound Progress Due to this patient's reported HPI, a focused bedside sonography for function was indicated Bedside ultrasonography was utilized to complete this procedure Cardiac evaluation involved both the parasternal and subxiphoid approaches to visualize the heart and pericardial sac. There was no evidence of gross wall mo tion abnormality, no evidence of pericardial effusion Departure Departure: Impression: Primary Impression: Chest wall pain Disposition: HOME / SELF CARE / HOMELESS Condition: STABLE Referrals: MORGAN WILLIAMSON (PCP) Additional Instructions: As discussed prior to ER departure, your vitals, physical exam and comprehensive ER work-up that included radiograph of the chest were nonconcerning for any emergent or surgical issues. You are likely suffering from persistent cough after recent COVID infection. You should continue supportive care practices that should include antihistamines and honey with use of anticough medication such as previously prescribed Tessalon Perles as needed for severe coughing episodes only. You should contact your primary care and [employer] physicians first thing in the morning to review ER visit today. If any concerning signs or symptoms present prior to outpatient follow-up please do not hesitate to come back for repeat evaluation. It was a pleasure to patient care of you and I wish you the best going forward THERESA HERNANDEZ DO May 11, 2021 17:36
== END 2021-05-11 17:44 | disposition home or self-care (01) ==
LOC: ER 16:10
DX: O26.891 Other specified pregnancy related conditions, first trimester (principal); R07.89 Other chest pain; O99.511 Diseases of the respiratory system complicating pregnancy, first trimester; J45.909 Unspecified asthma, uncomplicated; Z3A.12 12 weeks gestation of pregnancy
CPT/HCPCS: 71046; 99284